=== PATIENT | female | born 1995 | race African-American/Black ===

== ENCOUNTER 2023-09-30 04:10 | Day surgery (SDC) | payer OTHER ==
[2023-09-29 16:54] VITALS: BMI 47.2
[2023-09-30] MEDS ORDERED: ONDANSETRON 4 MG/2 ML VIAL IVPUSH PRN (11:23)
[2023-09-30] MEDS ORDERED: SUCCINYLCHOLINE CHLORIDE 200 MG/10 ML SYRINGE ONE (11:25)
[2023-09-30] MEDS ORDERED: LIDOCAINE HCL/PF 2% SDV 5ML VIAL ONE (11:25)
[2023-09-30] MEDS ORDERED: PROPOFOL 40 ML ONE (11:25)
[2023-09-30] MEDS ORDERED: DEXAMETHASONE SOD PHOSPHATE 4 MG/1 ML VIAL ONE (11:25)
[2023-09-30] MEDS ORDERED: FENTANYL CITRATE/PF 50 MCG/ML VIAL ONE ×4 (11:25→13:27)
[2023-09-30] MEDS ORDERED: MIDAZOLAM HCL 2 MG/2 ML SINGLE DOSE VIAL ONE (11:25)
[2023-09-30] MEDS ORDERED: LACTATED RINGERS SOLUTION 1,000 ML IV SCH (11:30)
[2023-09-30] MEDS ORDERED: KETOROLAC TROMETHAMINE 30 MG/1 ML VIAL ONE (12:34)
[2023-09-30] MEDS: ACETAMINOPHEN 1000 MG/100 ML BAG IVPB ONE (13:14)
[2023-09-30 14:17] VITALS: RESP 20; TEMP 97.5
[2023-09-30 16:55] VITALS: BP 127/65; PULSE 70
== END 2023-09-30 15:10 | disposition home or self-care (01) ==
LOC: JASU-SURG 04:10
PROVIDERS: ATTEND Obstetrics & Gynecology
PROC: 10D17ZZ Extraction of Products of Conception, Retained, Via Natural or Artificial Opening (ICD-10-PCS; principal; 2023-09-30 11:30)
DX: O02.1 Missed abortion (principal)
CPT/HCPCS: 86850; 86900; 86901; 88305-TC; 94760; J0131